=== PATIENT | male | born 1995 | race Caucasian/White ===

== ENCOUNTER 2022-08-05 16:34 | Inpatient (IN) ==
[2022-08-05] MEDS ORDERED: Ondansetron 4 MG/2 ML VIAL IVP PRN (21:29)
[2022-08-05] MEDS ORDERED: Acetaminophen 325 MG TABLET PO PRN (21:29)
[2022-08-05] MEDS ORDERED: Naloxone 0.4 MG/ML INJ IVP PRN (21:29)
[2022-08-05 22:55] LABS: Calcium 8.8 mg/dL (8.6-10.3); Potassium 3.5 mEq/L (3.5-5.1)
[2022-08-05] MEDS ORDERED: 0.9 % Sodium Chloride 1,000 ML IVC SCH (23:45)
[2022-08-06] MEDS: carvediloL 6.25 MG TABLET PO SCH ×3 (00:03→20:06)
[2022-08-06] MEDS: Melatonin 3 MG TABLET PO SCH ×2 (00:03→20:06)
[2022-08-06 00:18] LABS: Bilirubin,Urine Negative (Negative); Blood,Urine Small (Negative); Clarity,Urine Clear (Clear); Color,Urine Colorless (Yellow); Glucose,Urine (UA) 50 mg/dL (Normal); Ketones,Urine Negative (Negative); Leukocyte Esterase,Urine Negative (Negative); Nitrite,Urine Negative (Negative); Protein,Urine 50 mg/dL (Neg-Trace); RBC,Urine 0-3 per hpf (0-3); Specific Gravity,Urine 1.006 (1.010-1.025); Urobilinogen,Urine Normal (Normal); WBC,Urine 0-3 per hpf (0-3)
[2022-08-06 01:05] LABS: Amphetamine Screen,Urine Negative ng/mL (Cutoff=1000); Barbiturate Screen,Urine Negative ng/mL (Cutoff=200); Cannabinoid Screen,Urine Positive ng/mL (Cutoff = 50)
[2022-08-06 01:06] LABS: Benzodiazepines Screen,Urine Negative ng/mL (Cutoff=300); Cocaine Screen,Urine Negative ng/mL (Cutoff= 300); Opiate Screen,Urine Negative ng/mL (Cutoff=300); Phencyclidine Screen,Urine Negative ng/mL (Cutoff=25)
[2022-08-06 01:10] LABS: Adenovirus Not Detected (Not Detect); Coronavirus 229E Not Detected (Not Detect); Coronavirus HKU1 Not Detected (Not Detect); Coronavirus NL63 Not Detected (Not Detect); Coronavirus OC43 Not Detected (Not Detect); Human Metapneumovirus Not Detected (Not Detect); Human Rhinovirus/Enterovirus Not Detected (Not Detect); Influenza A Subtype 2009 H1 Not Detected (Not Detect); Influenza B Not Detected (Not Detect); Parainfluenza Virus 1 DETECTED (Not Detect); SARS-CoV-2 Not Detected (Not Detect)
[2022-08-06 01:11] LABS: Bordetella Pertussis Not Detected (Not Detect); Chlamydophila pneumoniae Not Detected (Not Detect); Mycoplasma pneumoniae Not Detected (Not Detect); Parainfluenza Virus 2 Not Detected (Not Detect); Parainfluenza Virus 3 Not Detected (Not Detect); Parainfluenza Virus 4 Not Detected (Not Detect); Respiratory Syncytial Virus Not Detected (Not Detect)
[2022-08-06 01:51] LABS: Basophils % 0.2 %; Eosinophils # 0.1 K/mcL (0.0-0.6); Hemoglobin 9.3 g/dL (12.9-16.9); Immature Granulocytes % 0.3 % (0-4); Lymphocytes % 16.6 %; Mean Corpuscular HGB Conc 34.4 g/dL (31.6-35.5); Mean Corpuscular Hemoglobin 30.1 pg (28.0-33.3); Mean Corpuscular Volume 87.4 fL (83.0-100.0); Mean Platelet Volume 9.6 fL (9.4-12.4); Monocytes # 0.8 K/mcL (0.0-1.3); Neutrophils # 4.1 K/mcL (1.6-8.9); Platelet Count 183 K/mcL (140-400); Red Blood Count 3.09 M/mcL (4.19-5.50); Red Cell Distribution Width 14.4 % (11.5-14.5); Segmented Neutrophils % 68.9 %; White Blood Count 5.9 K/mcL (4.3-11.1)
[2022-08-06 02:12] LABS: INR 1.1; Prothrombin Time 12.8 Seconds (9.4-12.1)
[2022-08-06 03:45] LABS: Sodium, Urine 37.5 mEq/L
[2022-08-06 04:35] LABS: Calcium 8.2 mg/dL (8.6-10.3); Potassium 3.9 mEq/L (3.5-5.1)
[2022-08-06 04:39] LABS: Thyroid Stimulating Hormone 2.894 mcIU/mL (0.340-5.600)
[2022-08-06 05:06] LABS: Albumin 4.4 g/dL (3.5-5.7); Bilirubin,Direct 0.1 mg/dL (0.0-0.2); Bilirubin,Indirect 0.3 mg/dL (0.0-1.0); Bilirubin,Total 0.4 mg/dL (0.3-1.0); Chol/HDL Ratio 5.6 (0-4.9); Globulin 2.2 g/dL (2.4-3.5); Magnesium 2.4 mg/dL (1.6-2.6); Phosphorous 8.2 mg/dL (2.7-4.5); Total Protein 6.6 g/dL (6.4-8.9)
[2022-08-06] MEDS ORDERED: Iopamidol - 370 500 ML MLS IVP ONE (08:37)
[2022-08-06] MEDS ORDERED: cloNIDine HCL 0.1 MG TABLET PO SCH (09:00)
[2022-08-06 10:34] LABS: Calcium 8.4 mg/dL (8.6-10.3); Potassium 4.1 mEq/L (3.5-5.1)
[2022-08-06] MEDS ORDERED: Iopamidol - 370 500 ML MLS PO ONE (11:38)
[2022-08-06] MEDS ORDERED: Perit. Dialysis with Dex 2.5 % 2,000 ML PERITONEAL ONE (13:00)
[2022-08-06] MEDS ORDERED: Perit. Dialysis with Dex 2.5 % 2,000 ML PERITONEAL SCH (14:00)
[2022-08-06] MEDS ORDERED: calcitrioL 0.25 MCG CAPSULE PO SCH (15:00)
[2022-08-06] MEDS ORDERED: lisinopriL 20 MG TABLET PO ONE (16:15)
[2022-08-06] MEDS ORDERED: *HR* LORazepam 0.5 MG TABLET PO ONE (16:22)
[2022-08-06 16:32] LABS: Potassium,Urine 3.2 mEq/L
[2022-08-06] MEDS ORDERED: Patient Taking Own Medication 1 EACH PO SCH (17:00)
[2022-08-06 17:18] VITALS: O2SAT 96
[2022-08-06] MEDS ORDERED: Perit. Dialysis with Dex 2.5 % 12,000 ML PERITONEAL ONE (19:00)
[2022-08-06 20:16] LABS: RBC,Peritoneal Fluid < 2000 RBC/mcL
[2022-08-06 20:30] LABS: Appearance of Peritoneal Fl HAZY (Clear)
[2022-08-06 20:59] LABS: Basophils,Peritoneal Fluid 0 %; Eosinophils,Peritoneal Fluid 0 %
[2022-08-07 00:41] VITALS: BP 126/83; PULSE 87; TEMP 98
[2022-08-07] MEDS ORDERED: lisinopriL 20 MG TABLET PO SCH (09:00)
[2022-08-07] MEDS ORDERED: calcitrioL 0.25 MCG CAPSULE PO SCH (14:55)
== END 2022-08-07 02:30 | disposition left against medical advice (07) | DRG 919 ==
LOC: 2ANU → SUATTDRO 21:30
PROVIDERS: ADMIT Hospitalist; ATTEND Family Medicine